=== PATIENT | female | born 1955 | race Caucasian/White ===

== ENCOUNTER 2021-03-01 15:05 | Outpatient (CLI) | payer MEDICARE, BC ==
[2021-03-02 05:11] LABS: SARS-CoV-2 PCR by NAA Not Detected (NotDetected)
== END 2021-03-01 15:06 | disposition home or self-care (01) ==
LOC: CSHLAB 15:05
PROVIDERS: ATTEND Podiatrist Foot & Ankle Surgery
DX: Z20.822 Contact with and (suspected) exposure to COVID-19 (principal)
CPT/HCPCS: 87635; U0003; U0005

== ENCOUNTER 2021-03-06 11:01 | Day surgery (SDC) | payer MEDICARE, BC ==
[2021-03-05 14:03] VITALS: BMI 28.3
[2021-03-06] MEDS ORDERED: Lidocaine 1% MPF 2 ML VIAL ONE (12:18)
[2021-03-06] MEDS ORDERED: ROPIVACAINE HCL NERVE BLCK SCH (13:00)
[2021-03-06] MEDS ORDERED: Bupivacaine PF 0.5% 30 ML VIAL ONE (13:37)
[2021-03-06] MEDS ORDERED: Fentanyl 100 MCG/2 ML VIAL ONE ×2 (13:49→16:36)
[2021-03-06] MEDS ORDERED: Midazolam HCl 2 mg/2 ml Vial ONE (13:49)
[2021-03-06] MEDS ORDERED: PROPOFOL 20 ML ONE (13:49)
[2021-03-06] MEDS ORDERED: Lidocaine 1% PF 5 ML VIAL ONE (13:50)
[2021-03-06] MEDS ORDERED: Ondansetron PF 4 MG/2 ML Vial ONE (13:50)
[2021-03-06] MEDS ORDERED: Dexamethasone 20 MG/5 ML VIAL ONE (13:50)
[2021-03-06] MEDS ORDERED: Ketorolac Tromethamine 30 MG/ML VIAL ONE (13:53)
[2021-03-06] MEDS ORDERED: ePHEDrine 50 MG/ML VIAL ONE (14:40)
== END 2021-03-06 17:40 | disposition home or self-care (01) ==
LOC: CSHSDC 11:01
PROVIDERS: ATTEND Podiatrist Foot & Ankle Surgery
DX: M21.611 Bunion of right foot (principal); M77.41 Metatarsalgia, right foot; M21.41 Flat foot [pes planus] (acquired), right foot; E03.9 Hypothyroidism, unspecified; E55.9 Vitamin D deficiency, unspecified; Z79.899 Other long term (current) drug therapy
CPT/HCPCS: 28292; 28308; 28730; 73620; 76000; C1713 ×8; J0690; J1100; J1885; J2250; J2405; J2704; J2795; J3010; J3490; S0020

== ENCOUNTER 2023-05-18 14:07 | Outpatient (CLI) | payer MEDICARE, BC | END 2023-05-18 14:08 | disposition home or self-care (01) | LOC: CSHMAMMO 14:07 | PROVIDERS: ATTEND Nurse Practitioner Family | DX: Z13.820 Encounter for screening for osteoporosis (principal) | CPT/HCPCS: 77080 ==

== ENCOUNTER → 2024-10-26 | Outpatient (CLI) | payer MEDICARE, BC | LOC: CSHULT 09:53 | PROVIDERS: ATTEND Nurse Practitioner Family | DX: R10.11 Right upper quadrant pain (principal); K76.0 Fatty (change of) liver, not elsewhere classified | CPT/HCPCS: 76705 ==

== ENCOUNTER 2025-08-18 10:13 | Outpatient (CLI) | payer MEDICARE, BC | END 2025-08-18 10:14 | disposition home or self-care (01) | LOC: CSHLAB 10:13 | PROVIDERS: ATTEND Student in an Organized Health Care Education/Training Program | DX: Z01.812 Encounter for preprocedural laboratory examination (principal); N81.11 Cystocele, midline; Z53.9 Procedure and treatment not carried out, unspecified reason | CPT/HCPCS: 85027; 86850; 86900; 86901 ==

== ENCOUNTER 2025-08-23 06:00 | Day surgery (SDC) | payer MEDICARE, BC ==
[2025-08-18 10:32] VITALS: BMI 29.7
[2025-08-18 10:59] LABS: Hematocrit 42.5 % (34.9-44.5); Hemoglobin 13.3 g/dL (12.0-15.5); Mean Corpuscular Hemoglobin 27.7 pg (27.0-33.0); Mean Corpuscular Volume 88.5 fL (81.6-98.3); Platelet Count 222 10x3/uL (150-450); Red Blood Cell (RBC) Count 4.80 10x6/uL (3.90-5.03); White Blood Cell (WBC) Count 6.13 10x3/uL (3.5-10.5)
[2025-08-23] MEDS ORDERED: Lidocaine 0.5%/Epinephrine 1:200,000 50 ml Vial ONE (06:53)
[2025-08-23] MEDS ORDERED: Ondansetron PF 4 MG/2 ML Vial ONE (07:07)
[2025-08-23] MEDS ORDERED: PROPOFOL 20 ML ONE ×3 (07:07→08:28)
[2025-08-23] MEDS ORDERED: CEFAZOLIN 2 GM VIAL ONE (07:21)
[2025-08-23] MEDS ORDERED: PROPOFOL 40 ML ONE (07:22)
[2025-08-23] MEDS ORDERED: oxyCODONE 5 MG TAB ONE (10:11)
== END 2025-08-23 11:10 | disposition home or self-care (01) ==
LOC: CSHSDC 06:00
PROVIDERS: ATTEND Student in an Organized Health Care Education/Training Program
PROC: 0JQC0ZZ Repair Pelvic Region Subcutaneous Tissue and Fascia, Open Approach (ICD-10-PCS; principal; 2025-08-23)
DX: N81.11 Cystocele, midline (principal); Z88.8 Allergy status to other drugs, medicaments and biological substances
CPT/HCPCS: 57240; 85027; 86850; 86900; 86901; J1100; J2250; J2704